=== PATIENT | female | born 1965 | race Caucasian/White ===

== ENCOUNTER 2019-12-27 09:42 | Outpatient (REF) | payer OTHER, SELFPAY ==
[2019-12-27 10:04] LABS: COVID-19 Test Negative (Negative)
== END 2019-12-27 09:43 | disposition home or self-care (01) ==
LOC: HO.LAB 09:42
PROVIDERS: PCP Internal Medicine; Visit Provider Internal Medicine
DX: Z20.828 Contact with and (suspected) exposure to other viral communicable diseases (principal)
CPT/HCPCS: 87635